=== PATIENT | female | born 1960 | race Caucasian/White ===

== ENCOUNTER → 2016-09-14 | Outpatient (CLI) | payer OTHER ==
--- NOTE | 2016-09-14 10:27 | REPMRS ---
Patient History The patient states she had a clinical breast exam in September 2015. Family history of unknown cancer in mother at age 80, breast cancer in paternal aunt at age 50 or over, and unknown cancer in maternal aunt. Taking hormonal contraceptives for 4 years 3 months. Digital Mammo Diagnostic Bilateral: September 14, 2016 - Exam #: [id number] Bilateral CC and MLO view(s) were taken. Technologist: Mirian Pandey, Technologist Prior study comparison: August 04, 2015, bilateral digital mammo screening bilat performed at [facility]. June 25, 2014, digital mammo diagnostic bilateral performed at [facility]. June 10, 2014, digital woman screen mammo, performed at [facility]. FINDINGS: The breast tissue is heterogeneously dense. This may lower the sensitivity of mammography. There is a moderate amount of heterogeneously dense fibroglandular tissue which is fairly symmetric. There is no interval development of dominant mass, architectural distortion, or clustered microcalcification typical of malignancy. There has been no change in the appearance of the mammogram from the prior studies. ASSESSMENT: BI-RADS/ACR category 1 mammogram. Negative. Recommendation Routine screening mammogram of both breasts in 1 year (for women over age 40). This mammogram was interpreted with the aid of an FDA-approved computer-aided dectection system. Electronically Signed By: Gene Ansari MD 09/14/16 0942
== END ==
LOC: M RAD 09:51
PROVIDERS: ATTEND Physician Assistant
DX: N64.3 Galactorrhea not associated with childbirth (principal); Z80.3 Family history of malignant neoplasm of breast; Z79.3 Long term (current) use of hormonal contraceptives

== ENCOUNTER → 2017-09-18 | Outpatient (CLI) | payer OTHER | LOC: M RAD 14:18 | DX: Z12.31 Encounter for screening mammogram for malignant neoplasm of breast (principal) | CPT/HCPCS: 77067 ==

== ENCOUNTER → 2017-10-16 | Outpatient (REF) | payer OTHER ==
[2017-10-23 14:08] LABS: HEPATITIS C VIRUS ABY INDEX 0.1 INDEX (<0.8)
== END ==
LOC: M LAB REF 10-20 16:51
DX: Z01.89 Encounter for other specified special examinations (principal)

== ENCOUNTER → 2018-11-01 | Outpatient (CLI) | payer OTHER ==
--- NOTE | 2018-11-01 14:27 | REPMRS ---
Patient History The patient states she had a clinical breast exam in September 2018. Family history of unknown cancer at age 80 in mother, breast cancer at age 50 or over in paternal aunt, unknown cancer in maternal aunt. Taking hormonal contraceptives for 4 years 3 months. 3D TOMOSYNTHESIS WAS PERFORMED. The Jocelyn Martinez lifetime risk for breast cancer is 12.3%. Digital Mammo Screening Bilat: November 01, 2018 - Exam #: [id number] Bilateral CC and MLO view(s) were taken. Technologist: Mirian Pandey, Technologist Prior study comparison: September 18, 2017, bilateral digital mammo screening bilat performed at [facility]. September 14, 2016, digital mammo diagnostic bilateral performed at [facility]. FINDINGS: The breast tissue is heterogeneously dense. This may lower the sensitivity of mammography. There has been no change in the appearance of the mammogram from the prior studies. There is a moderate amount of residual fibroglandular tissue which is fairly symmetric. There is no interval development of dominant mass, areas of architectural distortion, or clustered microcalcification typical of malignancy. Assessment: BI-RADS/ACR category 1 mammogram. Negative Mammogram. Recommendation Routine screening mammogram in 1 year (for women over age 40). This mammogram was interpreted with the aid of an FDA-approved computer-aided dectection system. Electronically Signed By: Cruz Fuentes MD 11/01/18 [id number]
== END ==
LOC: M RAD 12:29
PROVIDERS: ATTEND Obstetrics & Gynecology
DX: Z12.31 Encounter for screening mammogram for malignant neoplasm of breast (principal); Z80.9 Family history of malignant neoplasm, unspecified; Z79.3 Long term (current) use of hormonal contraceptives

== ENCOUNTER → 2018-11-13 | Outpatient (CLI) | payer OTHER ==
--- NOTE | 2018-11-14 07:41 | REP ---
Clinical: Postmenopausal pelvic pain. Technique: Transabdominal pelvic ultrasound followed by transvaginal examination for better evaluation of the endometrium and adnexa with color Doppler evaluation of the ovaries. Findings: Heterogeneous anteverted uterus measures 5.1 x 2.5 x 3.5 cm. Endometrial complex measures 4.7 mm thickness and a focal heterogeneous area with in the cervix measures 7.9 x 4.3 x 6.9 mm which may reflect small polyp. The bilateral ovaries are normal in appearance and vascularity. Right ovary measures 1.9 x 1.3 x 1.5 cm (RI 0.51). Left ovary measures 1.6 x 1.0 x 1.0 cm (RI 0.52). No pelvic fluid or adnexal mass lesion. Impression: Focal heterogeneous area within the cervix may represent polyp or myoma. Normal bilateral ovaries. No pelvic fluid. Electronically Signed by Armando Aburto MD 11/14/2018 07:33 A
== END ==
LOC: M RAD 10:33
PROVIDERS: ATTEND Obstetrics & Gynecology
DX: N92.0 Excessive and frequent menstruation with regular cycle (principal)

== ENCOUNTER → 2019-09-30 | Outpatient (CLI) | payer OTHER ==
--- NOTE | 2019-10-01 11:03 | REP ---
BILATERAL MAMMOGRAM WITH 3D TOMOSYNTHESIS, RIGHT BREAST ULTRASOUND: HISTORY: One incidence of right nipple discharge, clear. Family history of breast cancer in paternal aunt. Tyrer-Cuzick lifetime risk of breast cancer 14.7%. Volpara breast density B. Bilateral mammogram performed in the MLO and CC projections with 3D tomosynthesis. Comparison is made with prior studies 11/01/2018 and 09/18/2017. Moderate fibroglandular tissue is scattered bilaterally with no significant change compared to prior studies. I do not see evidence of a mass or architectural distortion. No clustered microcalcifications are seen. There are normal-appearing axillary lymph nodes bilaterally. Real-time sonographic evaluation of the right breast performed in the retroareolar region. A few minimally dilated ducts are seen in the retroareolar region without a discrete cystis or solid nodule. IMPRESSION: BIRADS 2: BI-RADS/ACR category 2 mammogram. Benign Findings. ACR2 benign. No mass or clustered microcalcifications. There are a few minimally dilated ducts in the right retroareolar region in this patient with a single episode of clear right nipple discharge. Followup mammogram is recommended in 1 year. This mammogram was interpreted with the aid of an FDA-approved computer-aided detection system. A. Negative x-ray reports should not delay biopsy if a dominant or clinically suspicious mass is present. B. Four to eight percent of cancers are not identified by x-ray. C. Adenosis and dense breasts may obscure an underlying neoplasm. The patient states that she or he has not had a clinical breast exam in over a year. The patient letter being requested is M2.
== END ==
LOC: M WHC 12:56
PROVIDERS: ATTEND Obstetrics & Gynecology
DX: Z12.31 Encounter for screening mammogram for malignant neoplasm of breast (principal); N64.3 Galactorrhea not associated with childbirth
CPT/HCPCS: 76642; 77066; G0279

== ENCOUNTER → 2019-09-30 | Outpatient (CLI) | payer OTHER | LOC: M LAB 11:26 | PROVIDERS: ATTEND Obstetrics & Gynecology | DX: O92.6 Galactorrhea (principal) ==

== ENCOUNTER → 2021-04-08 | Outpatient (CLI) | payer OTHER ==
--- NOTE | 2021-04-08 14:19 | REPMRS ---
Patient History The patient states she has not had a clinical breast exam in over a year. Family history of unknown cancer at age 80 in mother, breast cancer at age 50 or over in paternal aunt, unknown cancer in maternal aunt, ovarian cancer at age 55 in sister. Took hormonal contraceptives for 4 years 3 months. Taking estrogen for 1 month. Tomosynthesis is performed. Volpara breast density is b. [facility] lifetime risk of breast cancer 13.7%. Patient states no breast complaints today. Patient has signed MRS History Sheet. Digital Woman Screen Mammo: April 08, 2021 - Exam #: [id number] Bilateral CC and MLO view(s) were taken. Technologist: Monserrat Fraga Technologist Prior study comparison: September 30, 2019, diagnostic bilateral mammo performed at [facility]. November 01, 2018, bilateral digital mammo screening bilat, performed at [facility]. FINDINGS: The breast tissue is heterogeneously dense. This may lower the sensitivity of mammography. There has been no change in the appearance of the mammogram from the prior studies. There is a moderate amount of residual fibroglandular tissue which is fairly symmetric. There is no interval development of dominant mass, areas of architectural distortion, or clustered microcalcification typical of malignancy. Assessment: BI-RADS/ACR category 1 mammogram. Negative Mammogram. Recommendation Routine screening mammogram in 1 year (for women over age 40). This mammogram was interpreted with the aid of an FDA-approved computer-aided dectection system. Electronically Signed By: Cruz Fuentes MD 04/08/21 [id number]
== END ==
LOC: M WHC 13:28
PROVIDERS: ATTEND Obstetrics & Gynecology
DX: Z12.31 Encounter for screening mammogram for malignant neoplasm of breast (principal); Z80.3 Family history of malignant neoplasm of breast; Z80.41 Family history of malignant neoplasm of ovary